=== PATIENT | female | born 1990 | race Caucasian/White ===

== ENCOUNTER 2025-01-01 09:51 | Emergency (ER) | payer MEDICAID ==
[~2025-01-01] VITALS: Ht 167.6 cm; Wt 80.0 kg
[2025-01-01 10:01] VITALS: O2SAT 98
[2025-01-01] MEDS: HYDROCODONE/ACETAMINOPHEN 5/325MG TABLET PO ONE (11:40)
[2025-01-01 12:44] VITALS: BP 132/88; PULSE 90; RESP 16; TEMP 36.9; O2SAT 98
== END 2025-01-01 12:42 | disposition home or self-care (01) ==
LOC: ER 09:51
DX: S00.83XA Contusion of other part of head, initial encounter (principal); E11.9 Type 2 diabetes mellitus without complications; E78.00 Pure hypercholesterolemia, unspecified; I10 Essential (primary) hypertension; X58.XXXA Exposure to other specified factors, initial encounter; Y93.89 Activity, other specified; Y92.410 Unspecified street and highway as the place of occurrence of the external cause; Y99.8 Other external cause status
CPT/HCPCS: 70486; 81025; 99284